=== PATIENT | male | born 1940 | race Caucasian/White ===

== ENCOUNTER → 2022-07-10 | Outpatient (REF) | payer MEDICARE | LOC: ZLAB.ENT 16:28 | DX: H66.019 Acute suppurative otitis media with spontaneous rupture of ear drum, unspecified ear (principal) ==

== ENCOUNTER → 2023-11-18 | Outpatient (CLI) | payer MEDICARE ==
[~2023-11-18] MED LIST: Iohexol 300 - 100 ML VIAL IV ONE; NS 100 ML IV SCH
== END ==
LOC: COL.RAD 14:35
DX: N20.0 Calculus of kidney (principal); K40.20 Bilateral inguinal hernia, without obstruction or gangrene, not specified as recurrent; K57.90 Diverticulosis of intestine, part unspecified, without perforation or abscess without bleeding; K76.0 Fatty (change of) liver, not elsewhere classified
CPT/HCPCS: Q9967